=== PATIENT | male | born 1990 | race Caucasian/White ===

== ENCOUNTER → 2019-03-08 | Outpatient (CLI) | payer OTHER ==
[~2019-03-08] MED LIST: LOR5/325 PO; MONOCYCLINE; no rtn meds
--- NOTE | 2019-03-08 14:43 | RADIOLOGY IMAGING REPORT ---
FACILITY: [facility] - [place] PATIENT NAME: Chintan Youssef : 1990 MR: [id number] V: [id number] EXAM DATE: ORDERING PHYSICIAN: AAMIR JACKMAN TECHNOLOGIST: Location: [facility] [place] Patient: Chintan Youssef : 1990 Visit/Account:[id number] Date of Sevice: 03/08/2019 Examination: TIBIA FIBULA RIGHT Comparison: None. History: Surgery follow-up. Right leg pain. Findings: Right tibia mid diaphysis oblique fracture internally fixated by antegrade intramedullary r od and proximal/distal interlocking screws. The surgical hardware is intact and there is periosteal reaction and callus formation along the fracture. Right fibula mid diaphysis nondisplaced fracture with periosteal reaction and callus formation. Postoperative alignment is within normal limits although comparison to a prior study would be of bene fit to evaluate for interval change. Postoperative changes at the knee with retention anchor in the distal femur and proximal tibia. Knee alignment is within normal limits and no joint effusion is identified. Ankle alignment is maintained. IMPRESSION: 1. Right tibial mid diaphysis internally fixated fracture with radiographic findings of healing. 2. Right fibula mid diaphysis fracture with radiographic findings of healing. Report Dictated By: Rubén Fang MD at 03/08/2019 2:32 PM Report E-Signed By: Rubén Fang MD at 03/08/2019 2:36 PM WSN:[id number]
== END ==
LOC: RAD 11:10
PROVIDERS: ATTEND Orthopaedic Surgery
DX: S82.401D Unspecified fracture of shaft of right fibula, subsequent encounter for closed fracture with routine healing (principal)